=== PATIENT | male | born 1985 | race Caucasian/White ===

== ENCOUNTER 2024-05-05 14:32 | Observation (INO) | payer BC, SELFPAY ==
[2024-05-05 10:11] VITALS: BP 164/102
--- NOTE | 2024-05-05 10:45 | ED.GENMED ---
History of Present Illness
General
Chief Complaint: Abdominal Pain
Source: patient
Exam Limitations: none
Time Seen by Provider: 05/05/24 10:34
History of Present Illness
History of Present Illness:
38-year-old male otherwise healthy presents with relatively sudden onset periumbilical pain with a bump noted. He states the bump is tender to the touch. No vomiting. No prior issues like this in the past. He has been moving his bowels. No
urinary symptoms. No prior abdominal surgical history. No other complaints at this time
Phy Exam
Physical Exam
Physical Exam:
General: Well-appearing male no acute respiratory distress
HEENT: Normocephalic atraumatic
Heart: Regular rate and rhythm no murmurs
Lungs: Clear no wheeze
Abdomen: Soft there is a swollen area in the periumbilical region that is tender to the touch. Feels like a hernia without any pain medicine initially not easily reduced
Extremities: No cyanosis
skin: Warm, no erythema
Course
Orders/Labs/Results
Orders:
Orders
05/05/24 Breakfast
NPO
Allow oral meds: Yes
Allow clear liquids: No
NPO with Ice Chips: Yes
05/05/24 10:41
Ketorolac [Toradol] 15 mg IV NOW STA
Ondansetron Injectable [Zofran] 4 mg IV NOW STA
05/05/24 10:42
CT Abd/pelvis W Iv Cont Urgent
Comment:
Reason For Exam: umbilical pain - hernia?
05/05/24 11:16
Complete Blood Count/With Diff Urgent
Comprehensive Metabolic Panel Urgent
05/05/24 12:32
HYDROmorphone [Dilaudid] 0.5 mg IV NOW STA
05/05/24 13:33
Admit Patient As Directed
Co-Sign Provider:
Level of Care: Observation services
Assign to:: Medical/Surgical
Physician / Group: arsalan/surgery service
Diagnosis: umbilical hernia
Code Status As Directed
Resuscitation Status: Full Code
Acetaminophen [Tylenol] 650 mg PO Q4HPRN PRN
Ondansetron Injectable [Zofran] 4 mg IV Q6HPRN PRN
Activity As Directed
Activity Level: Out of Bed-Early Mobility
Vital Signs As Directed
Frequency: Per unit guidelines
PRN Pain Medication Management As Directed
May give lesser potent ordered pain med per pt: Yes
preference::
Protocol:: Medication orders for pain may be administered in a
manner that supports deferring to patient preference
when the pt is:
- Requesting an ordered lesser potent pain medication.
Least to most potent pain medications are defined
as: acetaminophen < NSAID < tramadol < opioids
(morphine, oxycodone, hydromorphone).
- Requesting a lesser dose of the same medication IF
ORDERED.
- Requesting a less intrusive route of administration
if both routes are prescribed by the provider (PO <
IV).
05/05/24 13:34
Pneumatic Compression Sleeves As Directed
Type: Thigh high
DX Deep Vein Thrombosis Video Routine
05/05/24 13:36
Ketorolac [Toradol] 15 mg IV Q6HPRN PRN
Abnormal Lab Results
05/05/24
11:16
WBC 14.9 H 10^3/uL
(4.8-10.8)
RBC 4.50 L 10^6/uL
(4.70-6.10)
Plt Count 512 H 10^3/uL
(130-400)
Abs Immat Gran (auto) 0.1 H 10^3/uL
(0-0.05)
Absolute Neuts (auto) 13.5 H 10^3/uL
(1.4-6.5)
Absolute Lymphs (auto) 0.7 L 10^3/uL
(1.2-3.4)
Neutrophils % 90.4 H %
(42.2-75.2)
Lymphocytes % 4.7 L %
(20.5-51.1)
Carbon Dioxide 21 L mmol/L
(22-30)
Glucose 120 H mg/dl
(70-99)
Alkaline Phosphatase 150 H U/L
(38-126)
05/05/24 11:16
05/05/24 11:16
Vital Signs
Initial and Last Documented VS:
Initial Vital Signs
Temp Pulse Resp BP Pulse Ox
97.8 F 94 16 164/102 100
05/05/24 10:11 05/05/24 10:11 05/05/24 10:11 05/05/24 10:11 05/05/24 10:11
Last Documented Vital Signs
Temp Pulse Resp BP Pulse Ox
97.8 F 94 16 164/102 99
05/05/24 10:11 05/05/24 10:11 05/05/24 10:11 05/05/24 10:11 05/05/24 11:25
*Critical Care Note
Total Time (30-74mins, 75-104mins- exclusive of procedures): Not Applicable
Update Note
Update Note:
Concern for incarcerated hernia based on CT. Contacted general surgery. General surgery able to reduce but will keep in observation overnight
ED Attending Note
-
Portions of this chart may have been created with voice recognition software.� Occasional wrong word or��sound alike� substitutions may have occurred due to the inherent limitations of voice recognition software.
Discharge Plan
Departure
Patient Disposition: Admit
Date of Disposition: 05/05/24
Time of Disposition: 13:39
Presentation/result/management discussed w/ accepting MD/DO: Francis
Discharge Problem:
Hernia, umbilical
Prescriptions:
No Action
ibuprofen [Advil] 200 mg Tablet
800 mg PO BIDPRN PRN (Reason: moderate pain)
Referrals:
Glenis Burden MD [Family Provider] -
Interventions
Interventions:
*Risk Screen - Suicide Last Done: 05/05/24 11:10
*General Assessment Last Done: 05/05/24 11:10
*Neglect/Abuse Screening Last Done: 05/05/24 11:10
ED- Fall Risk Assessment Last Done: 05/05/24 11:25
*ED COVID-19 Vaccine History Last Done: 05/05/24 11:10
CL-Qyybqy-Wedcexhcyz Assessment Last Done: 05/05/24 11:25
Discharge Date and Time
Print Language: SPANISH
[2024-05-05 11:10] VITALS: BMI 30.7
[2024-05-05] MEDS: ZOFRAN 4 MG IV ×2 (11:12→18:16)
[2024-05-05] MEDS: TORADOL 15 MG IV ×3 (11:12→23:09)
[2024-05-05 11:25] LABS: % Basophils 0.2 % (0-2); % Eosinophils 0.1 % (0-6); % Immature Granulocytes 0.5 % (0-0.5); % Lymphocytes 4.7 % (20.5-51.1); % Monocytes 4.1 % (1.7-9.3); % Neutrophils 90.4 % (42.2-75.2); Absolute Immature Granulocytes 0.1 10^3/uL (0-0.05); Absolute Lymphocytes 0.7 10^3/uL (1.2-3.4); Absolute Monocytes 0.6 10^3/uL (0.1-0.6); Absolute Neutrophils 13.5 10^3/uL (1.4-6.5); Hematocrit 39.7 % (39.0-52.0); Hemoglobin 13.4 g/dL (13.0-18.0); Mean Corp Hgb Conc. 33.8 g/dL (33.0-37.0); Mean Corpuscular Hgb 29.8 pg (27.0-31.0); Mean Corpuscular Volume 88.2 fL (80.0-94.0); Nucleated Red Blood Cells % 0 % (-); Platelet Count 512 10^3/uL (130-400); Red Cell Dist. Width 12.8 % (11.5-14.5); White Blood Cell Count 14.9 10^3/uL (4.8-10.8)
[2024-05-05 11:42] LABS: ALT (SGPT) 21 U/L (0-50); AST (SGOT) 22 U/L (17-59); Albumin 4.7 g/dl (3.5-5.0); Alkaline Phosphatase 150 U/L (38-126); Blood Urea Nitrogen 14 mg/dl (9-20); Calcium 10.2 mg/dl (8.4-10.2); Carbon Dioxide 21 mmol/L (22-30); Chloride 105 mmol/L (98-107); Estimated Creatinine Clearance > 125 ml/min; Glucose 120 mg/dl (70-99); Potassium 4.3 mmol/L (3.5-5.1); Sodium 138 mmol/L (135-145); Total Bilirubin 0.8 mg/dl (0.2-1.3); eGFR > 60.00
[2024-05-05] MEDS: DILAUDID 0.5 MG IV (12:35)
--- NOTE | 2024-05-05 13:12 | HPS.HSE ---
Addendum entered and electronically signed by Timoteo Marti MD 05/05/24 15:45:
I saw and examined the patient independently.
The Computer Compositor's note was reviewed and I agree with the note, assessment and plan except where noted below.
Comment: This is a 38-year-old male with known umbilical supraumbilical hernia who presented to our ED this morning after sudden onset severe abdominal pain and bulge that he noticed since this morning. He endorses nausea but no vomiting. Hernia
has protruded multiple times in the past but is always been reducible. He did not seek medical or surgical advice for management of this hernia prior to this visit. The ED providers attempted bedside reduction but were unsuccessful, general
surgery consulted, thankfully the bowel reduced fairly easily.
Will admit to general surgery for observation
Okay for clear liquids tonight.
If feeling well and no recurrence, will advance diet and discharge with plan for outpatient follow-up however if patient is amenable, could plan for surgery tomorrow.
Risks/Benefits/Alternatives, expected postoperative course and possible complications (bleeding, infection, injury to surrounding structures, acute/chronic pain) discussed at length. Patient wishes to proceed with surgery. All questions answered.
Consent obtained.
I spent 60 minutes in total for the care of this patient today including direct patient care and counseling, reviewing labs, imaging, coordination of care, as well as documentation.
Original Note:
Family Physician
-
Family Physician: Glenis Burden MD
Chief Complaint
-
abdominal pain
History of Present Illness
Mr Ayala is a 38 yo male with a known periumbilical hernia who presents through the ED as he had sudden onset of severe abdominal pain with some nausea this morning a felt a palpable bulge at the hernia site. Prior to this episode, he was eating
and drinking well with no changes to bowel habits. On exam, a periumbilical hernia is present which is tender but able to be reduced at bedside.
Medical History
Past Medical History
Past Medical History: Reports None
Past Surgical History: Reports None
Social History
Tobacco: Non-smoker
Alcohol: None
Family History
Family History: Not pertinent
Allergies / Home Medications
Allergies reflects when Allergies were last updated in [employer].
Home Medications with original date entered in [employer]
Allergy/Medication List:
Patient Allergies
Allergy/AdvReac Type Severity Reaction Status Date / Time
No Known Allergies Allergy Unverified 05/05/24 10:16
�Medication �Instructions �Recorded �Confirmed �Type
ibuprofen 200 mg tablet (Advil) 800 mg PO BIDPRN PRN moderate pain 05/05/24 05/05/24 History
Review of Systems
-
History Source: Patient and Family
A 12 point ROS was completed and negative except as noted: Yes
Physical Exam
Vital Signs
Vital Signs
Temp Pulse Resp BP Pulse Ox
97.8 F 94 16 164/102 99
05/05/24 10:11 05/05/24 10:11 05/05/24 10:11 05/05/24 10:11 05/05/24 11:25
Physical Exam
General: Well Developed and Well Nourished; No Comfortable
HEENT: Moist mucous membranes
Respiratory: Non Labored Respirations
GI: Soft, Non Distended, Tender (to hernia site) and Other (Periumbilical hernia/soft and reducible)
Skin: Warm and Dry
Neuro: Awake, Alert and AO x 3
Psych: Calm
Laboratory Results
-
05/05/24 11:16
05/05/24 11:16
Laboratory Results
Total Bilirubin 0.8 mg/dl (0.2-1.3) 05/05/24 11:16
AST 22 U/L (17-59) 05/05/24 11:16
ALT 21 U/L (0-50) 05/05/24 11:16
Alkaline Phosphatase 150 U/L (38-126) H 05/05/24 11:16
Data Reviewed
-
CT Scan: Image Personally Visualized and interpreted, Report Reviewed by me, Discussed with Physician, Discussed with Patient and Discussed with Family
Lab Data: Labs Reviewed by me, Discussed with Physician, Discussed with Patient and Discussed with Family
Impression/Plan
-
IMPRESSION:
38 yo male presenting with acute onset of severe abdominal pain with new bulging at periumbilical hernia site and associated nausea. CT imaging reviewed with periumbilical hernia containing fat and loop of small bowel present and small bowel
distention proximal to the hernia site. Fortunately, the hernia was able to be reduced at bedside after administration of narcotic analgesics. AFVSS. Leukocytosis present.
PLAN:
Will place in observation overnight to monitor for recurrence, resolution of GI symptoms
NPO for now, clear liquids for dinner if continues to do well
Analgesics prn
SCDs while in bed
Hold off on OR for repair for now. If does well overnight, will plan outpatient surgery for hernia repair with mesh.
[2024-05-05 13:49] VITALS: BP 152/83
[2024-05-05 15:37] VITALS: BP 154/82
--- NOTE | 2024-05-05 16:30 | PTCARENOTE ---
pt admitted from ED AOx3, LCTA abd tender s/P external hernial repair. Surgery at bedside reviewed out pt VS OR tomorrow. pt's skin CDI. +PP B/L SCDs applied. CB in reach instructed on use. PRN pain medication see MAY.
[2024-05-05] MEDS: TYLENOL 650 MG PO (21:48)
[2024-05-05 23:00] VITALS: BP 154/91
[2024-05-06 07:10] VITALS: BP 151/78
--- NOTE | 2024-05-06 07:26 | W.PN.GS2 ---
Today's Communication / Plan
-
Dispo planning
Assessment / Plan
-
This is a 38-year-old male who presented with a small bowel obstruction secondary to an incarcerated umbilical hernia that was reduced at bedside. Admitted for observation, doing well.
Will advance diet and DC home today.
Patient not interested in surgery this admission, will plan for outpatient follow-up
Time Spent
Total Time Spent with Patient (in minutes): 10
Subjective Data
-
Date of Service: May 06, 2024
Interval Events:
No acute events overnight. Slept well. Pain Controlled, but still complaining of some soreness. Denies Nausea/Vomiting, +bowel function. Tolerating diet.
Objective Data
-
Vital Signs
Temp Pulse Resp BP Pulse Ox
98 F 72 14 154/91 97
05/05/24 23:00 05/05/24 23:00 05/05/24 23:00 05/05/24 23:00 05/05/24 23:00
Calcium 10.2 mg/dl (8.4-10.2) 05/05/24 11:16
Total Bilirubin 0.8 mg/dl (0.2-1.3) 05/05/24 11:16
AST 22 U/L (17-59) 05/05/24 11:16
ALT 21 U/L (0-50) 05/05/24 11:16
Alkaline Phosphatase 150 U/L (38-126) H 05/05/24 11:16
Total Protein 8.0 g/dl (6.3-8.2) 05/05/24 11:16
Albumin 4.7 g/dl (3.5-5.0) 05/05/24 11:16
Physical Exam
-
GENERAL/NEURO: Awake, Alert, no distress
CHEST: Unlabored breathing on RA
ABDOMEN: Soft, Non-Tender, Non-Distended
Patient has a baird catheter: No
Patient has a central line: No
[2024-05-06] MEDS: TORADOL 15 MG IV (07:57)
[2024-05-06 08:11] LABS: Hematocrit 40.4 % (39.0-52.0); Hemoglobin 13.3 g/dL (13.0-18.0); Mean Corp Hgb Conc. 32.9 g/dL (33.0-37.0); Mean Corpuscular Hgb 29.5 pg (27.0-31.0); Mean Corpuscular Volume 89.6 fL (80.0-94.0); Mean Platelet Volume 9.1 fL (7.4-10.4); Platelet Count 472 10^3/uL (130-400); Red Blood Cell Count 4.51 10^6/uL (4.70-6.10); Red Cell Dist. Width 12.8 % (11.5-14.5); White Blood Cell Count 6.3 10^3/uL (4.8-10.8)
[2024-05-06 08:49] LABS: Blood Urea Nitrogen 11 mg/dl (9-20); Calcium 9.7 mg/dl (8.4-10.2); Carbon Dioxide 23 mmol/L (22-30); Chloride 104 mmol/L (98-107); Estimated Creatinine Clearance > 125 ml/min; Glucose 101 mg/dl (70-99); Potassium 4.5 mmol/L (3.5-5.1); Sodium 137 mmol/L (135-145); eGFR > 60.00
--- NOTE | 2024-05-06 09:37 | CM ---
CM following re: discharge planning.
Reviewed pt's chart, met with pt and pt's girlfriend Gema at bedside.
Pt is a 38 year old male, admitted with OBS status and primary dx of small bowel obstruction secondary to an incarcerated umbilical hernia. per Surgery pt is not ready for surgery this admission. OBS status explained to the pt, pt expressed
understanding, declined to sign, OBS letter placed on chart, pt has a copy.
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 Per pt, his mother and his ex- are taking care of the children while pt is here. Pt described himself as independent in all
areas [employer]. Pt reports he might decide to have hernia repair somehow in a month or two.
Discharge order noted. Pt is aware and he stated his girlfriend will transport home.
PCP: Glenis Burden
pharmacy: [facility]
D/C plan: home no needs. Girlfriend to transport.
--- NOTE | 2024-05-09 08:09 | W.DCSUMMARY ---
Discharge Summary
Discharge Data
Date of Admission: 05/05/24
Date of Discharge: 05/06/24
-
Pending Results: No
Hospital Course
Mr Ayala presented through the ED with pain at a known supraumbilical hernia site and associated nausea with CT imaging demonstrating incarcerated loop of bowel within the hernia with resultant proximal small bowel obstruction. The hernia was
able to be reduced at bedside with resolution of symptoms. He was kept overnight for observation and dietary advancements which he tolerated well. He was discharged to home with plan for outpatient surgical repair of hernia on a scheduled basis.
Discharge Plan
-
Patient Disposition: Home (Routine Discharge)
Discharge Diagnosis/Procedures: Incarcerated umbilical hernia, reduced
Condition: Good
Diet: No restrictions
Activity: No restrictions
Additional Activity: Use an abdominal binder, particularly with strenuous activity.
Driving Restrictions: As prior to admission
Bathing Restrictions: OK to Shower
Referrals:
Glenis Burden MD [Family Provider] -
Timoteo Marti MD [Active] -
Prescriptions:
Continued
ibuprofen [Advil] 200 mg Tablet
800 mg PO BIDPRN PRN (Reason: moderate pain)
Discharge Orders:
Discharge Patient (As Directed); Ordered 05/06/24
Ordered By: Timoteo Marti
Discharge Date and Time
Discharge Date/Time: 05/06/24 10:26
Print Language: MALTESE
== END 2024-05-06 10:26 | disposition home or self-care (01) ==
LOC: 1 ACUTE 14:32
PROVIDERS: Physician Assistant; Registered Nurse; ADMITTING PHYSICIAN Surgery; EMERGENCY PHYSICIAN Student in an Organized Health Care Education/Training Program; FAMILY PHYSICIAN Internal Medicine
DX: K42.0 Umbilical hernia with obstruction, without gangrene (principal); R10.9 Unspecified abdominal pain; D72.829 Elevated white blood cell count, unspecified; R11.0 Nausea; K63.89 Other specified diseases of intestine; Z53.20 Procedure and treatment not carried out because of patient's decision for unspecified reasons
CPT/HCPCS: 74177; 80048; 80053; 85025; 85027; 96374; 96375; 99285; G0378; Q9967